=== PATIENT | male | born 1960 | race Caucasian/White ===

== ENCOUNTER → 2021-01-29 | Outpatient (CLI) | payer BC ==
[~2021-01-29] VITALS: Ht 190.7 cm; Wt 142.4 kg
[~2021-01-29] MED LIST: ASPIR-LOW81 MG PO; BENADRYL50 MG; BENICAR5 MG; DIGOXIN PO; FISH OIL 1000MG1 CAP; HYZAAR 12.5 MG-1 TAB PO; HYZAAR 50-12.1 UDTAB; IBU800 M1 PO; IBUPROFEN; INDOCIN 25MG CA25 MG; LOPRESSOR; NORVASC 5MG5 MG/TAB PO; PREDNISONE10 MG PO; RT SPIRIVA18 MCG; VASOTEC10 MG PO; XANAX 0.5MG0.5 MG; ZYRTEC 10MG10 MG PO
[2021-01-29 11:01] VITALS: BP 178/88; PULSE 96
[2021-01-29 12:22] VITALS: BP 166/84; PULSE 111
[2021-01-29 12:24] VITALS: BP 180/92; PULSE 127
[2021-01-29 12:26] VITALS: BP 160/75; PULSE 109
== END ==
LOC: COL.CARD 10:17
DX: R07.9 Chest pain, unspecified (principal)
CPT/HCPCS: A9500; J2785